=== PATIENT | female | born 1970 | race Caucasian/White ===

== ENCOUNTER → 2024-06-03 15:39 | Outpatient (REF) | payer OTHER, SELFPAY | LOC: HWWDC 15:39 | PROVIDERS: ATTENDING PHYSICIAN Obstetrics & Gynecology; FAMILY PHYSICIAN Family Medicine | DX: Z12.31 Encounter for screening mammogram for malignant neoplasm of breast (principal) | CPT/HCPCS: 77063; 77067 ==

== ENCOUNTER → 2024-07-20 17:34 | Outpatient (REF) | payer OTHER, SELFPAY | LOC: PAVMRI 17:34 | PROVIDERS: ATTENDING PHYSICIAN Internal Medicine; FAMILY PHYSICIAN Family Medicine | DX: M25.551 Pain in right hip (principal) | CPT/HCPCS: 73721 ==